=== PATIENT | male | born 2000 | race American Indian/Alaskan Native ===

== ENCOUNTER 2021-08-16 12:30 | Emergency (ER) | payer BC ==
[2021-08-16] MEDS ORDERED: IBUPROFEN 800 MG TAB PO ONE (12:47)
--- NOTE | 2021-08-16 13:45 | XRay Report ---
LEFT FOOT 3 VIEW(S) INDICATION / CLINICAL INFORMATION: pain s/p fall COMPARISON: None available. FINDINGS: BONES / JOINT(S): No acute fracture or subluxation in the foot. No significant arthritis. SOFT TISSUES: Soft tissue swelling around the ankle. ADDITIONAL FINDINGS: None. Signer Name: Seven Claros MD Signed: 08/16/2021 1:41 PM Workstation Name: [id number]
--- NOTE | 2021-08-16 13:47 | XRay Report ---
LEFT ANKLE 2 VIEW(S) INDICATION / CLINICAL INFORMATION: pain s/p fall COMPARISON: None available. FINDINGS: BONES / JOINT(S): Small ossific density adjacent to the tip of lateral malleolus may represent a smal l avulsion fracture of the ATFL. The ankle mortise is symmetric. No additional osseous abnormality id entified. SOFT TISSUES: There is circumferential soft tissue swelling of the ankle which can be seen with ligam entous injury. ADDITIONAL FINDINGS: None. Signer Name: Seven Claros MD Signed: 08/16/2021 1:42 PM Workstation Name: [id number]
--- NOTE | 2021-08-16 14:26 | Emergency Department Report ---
ED Lower Extremity HPI - General Chief Complaint: Extremity Injury, Lower Stated Complaint: LF ANKLE INJURY Time Seen by Provider: 08/16/21 12:45 Source: patient Mode of arrival: Ambulatory Limitations: No Limitations - History of Present Illness Initial Comments: This is a 20-year-old male nontoxic, well nourished in appearance, no acute signs of distress presents to the ED with c/o of left ankle pain several days. Patient stated that he had a fall while playing basketball and injured left ankle. Patient denies any other injuries or trauma. Deneis any neck or back pains. Patient denies any numbness, tingling, fever, chills, nausea, vomiting, chest pain, shortness of breath, headache, stiff neck. Patient denies any joint swelling or joint redness. Patient denies decreased range of motion. Patient stated has decreased gait due to pain. Patient denies any allergies or significant past medical history. MD Complaint: ankle injury -: days(s) Injury: Ankle: Left Place: street/outdoors Severity: mild Severity scale (0 -10): 8 Improves With: immobilization Worsens With: weight bearing, movement, palpation Context: fall Associated Symptoms: swelling, able to partially bear weight. denies: snap/pop sensation, numbness, tingling, unable to bear weight - Related Data Previous Rx's Medication Instructions Recorded Last Taken Type Naproxen 500 mg PO Q12H PRN #12 tab 08/16/21 Unknown Rx Allergies Allergy/AdvReac Type Severity Reaction Status Date / Time No Known Allergies Allergy Unverified 08/16/21 12:32 ED Review of Systems ROS: Stated complaint: LF ANKLE INJURY Other details as noted in HPI Comment: All other systems reviewed and negative Constitutional: denies: chills, fever Eyes: denies: eye pain, eye discharge, vision change ENT: denies: ear pain, throat pain Respiratory: denies: cough, shortness of breath, wheezing Cardiovascular: denies: chest pain, palpitations Endocrine: no symptoms reported Gastrointestinal: denies: abdominal pain, nausea, diarrhea Genitourinary: denies: urgency, dysuria Musculoskeletal: denies: back pain, joint swelling, arthralgia Skin: denies: rash, lesions Neurological: denies: headache, weakness, paresthesias Psychiatric: denies: anxiety, depression Hematological/Lymphatic: denies: easy bleeding, easy bruising ED Past Medical Hx - Medications Home Medications: Home Medications Medication Instructions Recorded Confirmed Last Taken Type Naproxen 500 mg PO Q12H PRN #12 tab 08/16/21 Unknown Rx ED Physical Exam - General Limitations: No Limitations General appearance: alert, in no apparent distress - Head Head exam: Present: atraumatic, normocephalic - Eye Eye exam: Present: normal appearance - Neck Neck exam: Present: full ROM. Absent: lymphadenopathy - Respiratory Respiratory exam: Absent: respiratory distress - Extremities Exam Extremities exam: Present: full ROM, tenderness, normal capillary refill. Absent: joint swelling - Expanded Lower Extremity Exam Left Hip exam: Present: normal inspection, full ROM. Absent: tenderness, swelling Upper Leg exam: Present: normal inspection, full ROM. Absent: tenderness, swelling Knee exam: Present: normal inspection, full ROM. Absent: tenderness, swelling Lower Leg exam: Present: normal inspection, full ROM. Absent: tenderness, swelling, abrasion, laceration, ecchymosis, deformity, crepidus, dislocation, erythema, palpable cord, Renetta's sign Ankle exam: Present: full ROM, tenderness, swelling, ecchymosis. Absent: abrasion, laceration, deformity, crepidus, dislocation, erythema, anterior draw sign Foot/Toe exam: Present: normal inspection, full ROM. Absent: tenderness, swelling Neuro vascular tendon exam: Present: no vascular compromise Gait: Positive: observed and limited by pain - Back Exam Back exam: Present: normal inspection, full ROM. Absent: tenderness, CVA tenderness (R), CVA tenderness (L), muscle spasm, paraspinal tenderness, vertebral tenderness, rash noted - Neurological Exam Neurological exam: Present: alert, oriented X3 - Psychiatric Psychiatric exam: Present: normal affect, normal mood - Skin Skin exam: Present: warm, dry, intact, normal color. Absent: rash - Other Other exam information: Negative Garg test to left leg. ED Course Vital Signs 08/16/21 12:32 Temperature 98.6 F Pulse Rate 116 H Respiratory 18 Rate Blood Pressure 122/80 [Left] O2 Sat by Pulse 100 Oximetry - Reevaluation(s) Reevaluation #1: 08/16/21 14:25 Patient is speaking in full sentences with no signs of distress noted. ED Lower Extremity MDM - Radiology Data [facility] [address] [place] [id number] XRay Report Signed Patient: VENANCIO BOYLE MR#: [id number] : 2000 Acct:[id number] Age/Sex: 20 / M ADM Date: 08/16/21 Loc: ED Attending Dr: Ordering Physician: MOLLY LY NP Date of Service: 08/16/21 Procedure(s): XR ankle 3+V LT Accession Number(s): [id number] cc: MOLLY LY NP Fluoro Time In Minutes: LEFT ANKLE 2 VIEW(S) INDICATION / CLINICAL INFORMATION: pain s/p fall COMPARISON: None available. FINDINGS: BONES / JOINT(S): Small ossific density adjacent to the tip of lateral malleolus may represent a small avulsion fracture of the ATFL. The ankle mortise is symmetric. No additional osseous abnormality identified. SOFT TISSUES: There is circumferential soft tissue swelling of the ankle which can be seen with ligamentous injury. ADDITIONAL FINDINGS: None. Signer Name: Seven Claros MD Signed: 08/16/2021 1:42 PM Workstation Name: [id number] Transcribed By: DB Dictated By: SEVEN CLAROS MD Electronically Authenticated By: SEVEN CLAROS MD Signed Date/Time: 08/16/21 1342 DD/ 1341 TD/TT: [address] [address] XRay Report Signed Patient: VENANCIO BOYLE MR#: [id number] : 2000 Acct:[id number] Age/Sex: 20 / M ADM Date: 08/16/21 Loc: ED Attending Dr: Ordering Physician: MOLLY LY NP Date of Service: 08/16/21 Procedure(s): XR foot 3+V LT Accession Number(s): [id number] cc: MOLLY LY NP Fluoro Time In Minutes: LEFT FOOT 3 VIEW(S) INDICATION / CLINICAL INFORMATION: pain s/p fall COMPARISON: None available. FINDINGS: BONES / JOINT(S): No acute fracture or subluxation in the foot. No significant arthritis. SOFT TISSUES: Soft tissue swelling around the ankle. ADDITIONAL FINDINGS: None. Signer Name: Seven Claros MD Signed: 08/16/2021 1:41 PM Workstation Name: [id number] Transcribed By: DB Dictated By: SEVEN CLAROS MD Electronically Authenticated By: SEVEN CLAROS MD Signed Date/Time: 08/16/211340 DD/ 39 TD/TT: - Medical Decision Making This is a 20-year-old male that presents with right ankle and foot injury with ? fracture. Patient is stable and was examined by me. I referred patient to an orthopedic doctor for further evaluation for possible MRI. X-ray has been obtained and dictated by the radiologist. Patient is notified of the x-ray report with noted by the patient. A Shirley splint has been performed by RN. Post splint assessment: neurovasular intact; normal cap refill <2 second; normal sensation; denies decreaed sensation; normal ROM of digits. Patient also received crutches and was educated by RN how to use it. Patient was instructed to RICE therapy. Patient received Motrin for pain. Patient is discharged with naproxen. At time of discharge, the patient does not seem toxic or ill in appearance. No acute signs of distress noted. Patient agrees to discharge treatment plan of care. No further questions noted by the patient. Critical care attestation.: If time is entered above; I have spent that time in minutes in the direct care of this critically ill patient, excluding procedure time. ED Disposition Clinical Impression: Right ankle injury Qualifiers: Encounter type: initial encounter Qualified Code(s): S99.911A - Unspecified injury of right ankle, initial encounter Right foot injury Qualifiers: Encounter type: initial encounter Qualified Code(s): S99.921A - Unspecified injury of right foot, initial encounter Fall Qualifiers: Encounter type: initial encounter Qualified Code(s): W19.XXXA - Unspecified fall, initial encounter Disposition: 01 HOME / SELF CARE / HOMELESS Is pt being admited?: No Does the pt Need Aspirin: No Condition: Stable Instructions: Crush Injury of the Foot, Cast or Splint Care, Adult, [id number], RICE Therapy for Routine Care of Injuries, [id number] Additional Instructions: Follow-up with a orthopedic doctor in 3-5 days or if symptoms worsen and continue return to emergency room as soon as possible. No physical activity that extremity until cleared by orthopedic doctor Prescriptions: Naproxen 500 mg PO Q12H PRN #12 tab PRN Reason: Pain , Severe (7-10) Referrals: PRIMARY CARE, [Referring] - 3-5 Days NICKI BROWN MD [Staff Physician] - 3-5 Days Time of Disposition: 14:52
[2021-08-16 15:14] VITALS: BP 114/73
== END 2021-08-16 16:18 | disposition home or self-care (01) ==
LOC: ED 12:30
DX: S99.911A Unspecified injury of right ankle, initial encounter (principal); S99.921A Unspecified injury of right foot, initial encounter; W19.XXXA Unspecified fall, initial encounter; Y93.89 Activity, other specified; Y92.89 Other specified places as the place of occurrence of the external cause; Y99.9 Unspecified external cause status; Y99.8 Other external cause status
CPT/HCPCS: 99283